=== PATIENT | female | born 1955 | race Caucasian/White ===

== ENCOUNTER 2020-07-21 01:29 | Outpatient (CLI) | payer MEDICAID, SELFPAY ==
--- NOTE | 2020-07-21 | DI.MAMMO_ITS ---
EXAM: MG MAMMO SCREENING CLINICAL HISTORY: SCREENING, Z12.31 TECHNIQUE: Bilateral full field digital CC and MLO mammographic images were obtained with 3D tomosyn thesis and utilizing computer aided detection (CAD). COMPARISON: Available for comparison. FINDINGS: Masses/Architectural Distortion: None seen. Microcalcifications: No suspicious pleomorphic-type are seen. Skin Thickening/Nipple Retraction: None. IMPRESSION: 1. No significant interval change with no specific features of malignancy noted. 2. Unless there is more urgent need, screening mammography is recommended, as per [employer] guidelines. BI-RADS Category 1 - Negative Breast Density - Category B - Scattered areas of fibroglandular density Breast density category C or D implies that the patient has dense breast tissue. Dense breast tissue is very common and is not abnormal but dense breast tissue can make it harder to find cancer on a ma mmogram. Also, dense breast tissue may increase their breast cancer risk. This information about the result of the mammogram report was provided to the patient to raise their awareness. Use this report when you speak with the patient about their risks for breast cancer, which includes their family hist ory. At that time, you may recommend for more screening tests (Ultrasound or MRI) as they might be us eful based on their risk. A negative radiographic report should not delay biopsy if a dominant or clinically suspicious mass is present. Up to ten percent of cancers are not identified on mammography. A negative report may reinforce clinical impression. Adenosis and dense breasts may obscure an underlying neoplasm. False positive reports average 6 to 10%. Patient will receive a letter notifying them of these results.
== END 2020-07-21 01:49 ==
DX: Z12.31 Encounter for screening mammogram for malignant neoplasm of breast (principal)
CPT/HCPCS: 77063; 77067

== ENCOUNTER 2021-06-15 10:35 | Emergency (ER) | payer MEDICAID, SELFPAY ==
[2021-06-15 10:43] VITALS: BP 125/79; PULSE 98; RESP 16; TEMP 36.6; O2SAT 99
--- NOTE | 2021-06-15 10:45 | DI.CT_ITS ---
Exam(s) CT ABDOMEN PELVIS W EXAM: CT ABDOMEN PELVIS W CLINICAL HISTORY: RUQ abd pain. TECHNIQUE: Imaging Protocol: Axial computed tomography images with coronal and sagittal reformatted images were created and reviewed CONTRAST MATERIAL: Intravenous: Omnipaque 100cc Oral: None COMPARISON: No exams were available for comparison FINDINGS: VISUALIZED LUNG BASES: Mild increased markings in the posterior and lateral basal segment of the righ t lower lobe. There is also a 4 millimeter subpleural nodule in the lateral basal segment of right l ower lobe (series 4/image 11). There are no pleural effusions.. ABDOMEN: There is no ascites. LIVER: In the right hepatic lobe there is a well-defined round hypodensity measuring 5 millimeters, d ifficult to accurately characterize on the single flow study. However, has benign appearance. No ot her focal hepatic findings and there is no dilatation of intrahepatic ducts. GALLBLADDER/BILIARY: No obvious gallbladder pathology. CBD is not dilated. PANCREAS: There are few tiny punctate parenchymal calcifications in the uncinate process of the pancr eas. No obvious mass at this level. The pancreatic duct is not dilated. There is no peripancreatic fluid. SPLEEN: Spleen is not enlarged. No obvious intrasplenic lesions. Splenic and portal veins are paten t. ADRENALS: There are no significant adrenal masses. KIDNEYS:No cysts evident. No solid renal masses. No calculi nor hydronephrosis.. ABDOMINAL AORTA: Abdominal aorta is not enlarged. LYMPH NODES:There is no retroperitoneal nor paraaortic adenopathy. ABDOMINAL WALL: No evidence of significant anterior abdominal wall nor inguinal hernia. GI: There is an area of abnormality in the right-side of the colon in the upper ascending-right colon which exhibits mural edema. This just below the gallbladder level. Ileocecal valve appears unremar kable. Appendix appears unremarkable. There is, some streaking in pericolic gutter. PELVIS: GI: No evidence of appendicitis.No evidence of sigmoid diverticulitis. LYMPH NODES: Uterus size age-appropriate. However, there is cysts in both ovaries. There appears to be a solitary cyst in each ovary. On the right side this measures 1.5 by 1.3 cm. On the left side measures 1.6 by 1.1 cm. REPRODUCTIVE: Age-appropriate URINARY BLADDER: No calculi nor obvious masses evident OSSEOUS: No significant osseous lesions. No fractures. Sacroiliac joints appear IMPRESSION: 1. In the upper ascending colon (right-sided) there is focal circumferential mural thickening, either related to focal colitis or possible diverticulitis given that there appears to be a single eccentri c laterally located diverticulum at this level. Is here is somewhat difficult to evaluate without in traluminal oral contrast. Follow-up colonoscopy when clinically feasible is recommended. 2. There are few small punctate calcifications noted in the uncinate process of the pancreas. No act ual mass at this level and there is no dilatation of the pancreatic duct. 3. There is a solitary 5 millimeter round hypodensity in the right hepatic lobe. This does not have the appearance simple cyst. Possibly represents hemangioma. Requires appropriate follow-up to ensur e stability. Report discussed by phone with ER provider RADIATION DOSE DELIVERED: 732.69mGy.cm Total DLP DATA REPOSITORY: All CT scans at this facility are submitted to the National Radiology Data Registry (NRDR) Dose Index Registry (DIR) with the [employer] ([employer]). RADIATION OPTIMIZATION: All CT scans at this facility use at least one of these dose optimization te chniques: automated exposure control; mA and/or kV adjustment per patient size (includes targeted exa ms where dose is matched to clinical indication); or iterative reconstruction.
--- NOTE | 2021-06-15 10:50 | ED.GENADUL_ITS ---
Discharge Plan Disposition Patient Disposition: HOME Condition: Stable Discharge Details Clinical Impression: Gastroenteritis Primary Care Provider: Yarelis Johnson ED Provider: Erinn Luna Home Meds and New Rx's Prescriptions: New amoxicillin-pot clavulanate [Augmentin] 875-125 mg tablet 1 tab PO BID 10 Days Qty: 20 RF: 0 Discharge Instructions Instructions: Diverticulitis (ED), Gastroenteritis (ED), Diverticulitis Diet (ED) Additional Instructions: At this time CT shows a inflamed area of your colon and a possible diverticulitis. Please take the antibiotics twice daily as directed. May take the nausea medication 20 to 30-minute prior to eating or drinking anything. Clear liquids for the next 2 to 3 days. Then advance as tolerated with a bland diet. Away from anything fried, fatty or spicy. No dairy. Please follow a diverticulitis diet and stay away from anything with seeds or nuts. Follow up with primary care provider in 3-5 days. Return to ED sooner if any worsening or concerns. Increase oral fluids. Please take Tylenol or Ibuprofen with food every 4-6 hours as needed for pain and swelling. Referrals: Yarelis Johnson MD [Primary Care Provider] - 1 week Discharge Data Discharge Date/Time-TO BE ENTERED AT DEPARTURE: 06/15/21 13:20 Medical Decision Making 66-year-old female presents to the ER with chief complaint of right upper quadrant abdominal pain which began approximately 2 days ago. Patient reports that initially she did have some nausea and vomited 1 time 2 days ago. Nothing since then. She reports some bright red blood noted on the tissue possibly in her stool. She denies any fever or dysuria. No history of abdominal surgeries. Has been taking Tylenol at home with little to no relief. No significant past medical history. CBC largely unremarkable, CMP also largely unremarkable. Urinalysis shows small blood and small leukocytes culture is pending. Spoke with Dr. Akers radiologist regarding patient's CT result. CT shows a focal colitis or possible diverticulitis in the right ascending colon. Discussed results with patient who verbalizes understanding. Discussed follow- up with PCP within the next week. We'll treat for possible diverticulitis here and give Augmentin twice daily and also send patient home with some Zofran. Discussed strict return instructions and diet with patient. At this time there is no evidence for sepsis. HPI General Mode of arrival: ambulatory . Date/Time Provider Initiated Documentation: 06/15/21 10:36 . Limitations to Documentation: no limitations . Information obtained by: patient and RN notes reviewed . HPI Narrative: 66-year-old female presents to the ER with chief complaint of right upper quadrant abdominal pain which began approximately 2 days ago. Patient reports that initially she did have some nausea and vomited 1 time 2 days ago. Nothing since then. She reports some bright red blood noted on the tissue possibly in her stool. She denies any fever or dysuria. No history of abdominal surgeries. Has been taking Tylenol at home with little to no relief. No significant past medical history. Related Data Home Medications Medication Instructions Recorded Confirmed amoxicillin-pot clavulanate 1 tab PO BID 10 Days #20 tab 06/15/21 [Augmentin] Previous Rx's Medication Instructions Recorded amoxicillin-pot clavulanate 1 tab PO BID 10 Days #20 tab 06/15/21 [Augmentin] Allergies Allergy/AdvReac Type Severity Reaction Status Date / Time No Known Allergies Allergy Unverified 06/15/21 10:48 General Stated Complaint: Abd Prob STEPHANIE: 3 Review of Systems All systems reviewed & are unremarkable except as noted in HPI and below Gastrointestinal Gastrointestinal: Reports abdominal pain, Reports nausea and Reports vomiting PFSH All Active Problems (Updated 06/15/21 @ 13:03 by Erinn Luna) Gastroenteritis (Acute) Social History Smoking/Tobacco Use Status: Never Smoking risk assessment performed?: Yes Substance use type: does not use Do you feel safe in your relationship?: Yes Exam Narrative Exam Narrative: Constitutional: Alert and oriented x3. Appears stated age. Normal body habitus. Head: Normocephalic, no trauma. Eyes: Pupils PERRL, Red reflex noted, EOM's intact. Eyelids symmetrical without lesions, discharge, or swelling. ENT: Bilateral TM's WNL, External ear normal to inspection, no mastoid TTP, swelling, or erythema, Nasal turbinates WNL, no nasal discharge. Normal dentition, Posterior pharynx WNL, no exudate. Chest: RRR, Normal S1, S2, distal pulses intact. Resp: Lungs clear to auscultation bilaterally, no wheezes, rales, or rhonchi. Abdomen: Soft, non-distended, Normoactive bowel sounds all 4 quads. Musculoskeletal: Normal gait, 5/5 strength to all four extremities. Skin: No suspicious rashes or lesions. Capillary refill less than 2 sec. Neurologic: Cranial nerves II-XII intact. Alert and oriented x 3. Motor: No deficits noted. Sensory: Intact bilaterally all 4 extremities. Reflexes: DTR's intact bilaterally.. Hematologic/Lymphatic: No ecchymosis, no lymphadenopathy. Course Vital Signs Vital signs: Vital Signs Temperature 36.6 C 06/15/21 10:43 Pulse 98 H 06/15/21 10:43 Respiratory Rate 16 06/15/21 10:43 Blood Pressure 125/79 06/15/21 10:43 Pulse Oximetry 99 06/15/21 10:43 Temperature 36.6 C 06/15/21 10:43 Temperature Source Skin 06/15/21 10:43 Pulse 98 H 06/15/21 10:43 Respiratory Rate 16 06/15/21 10:43 Respiratory Effort 06/15/21 10:43 Blood Pressure 125/79 06/15/21 10:43 Blood Pressure Position Sitting 06/15/21 10:43 Pulse Oximetry 99 06/15/21 10:43 Oxygen Delivery Method Room Air 06/15/21 10:43 Oxygen Flow Rate 0 06/15/21 10:43 Pain Level 8 06/15/21 10:43
[2021-06-15 11:00] LABS: Bilirubin Negative (Negative); Blood Small (Negative); Clarity Sl Cloudy (Clear); Glucose Negative (Negative); Ketones Negative (Negative); Leukocyte Esterase Small (Negative); Nitrite Negative (Negative); Urobilinogen 0.2 EU/dL (Up TO 0.2)
[2021-06-15 11:09] LABS: Abs Immature Grans 0.01 10^3/uL (0.0-0.06); Absolute Basophil Count 0.02 10^3/uL (0.0-0.2); Absolute Eosinophil Count 0.01 10^3/uL (0.0-0.7); Absolute Lymphocyte Count 0.86 10^3/uL (1.2-3.4); Absolute Monocyte Count 0.46 10^3/uL (0.1-0.8); Absolute Neutrophil Count 6.35 10^3/uL (1.2-6.7); Basophils % 0.3; Eosinophils % 0.1; HCT 37.7 % (36.0-46.0); HGB 12.2 g/dL (11.2-15.7); Immature Grans % 0.1; Lymphocytes % 11.2; MCH 31.4 pg (27.0-33.0); MCHC 32.4 % (32.0-36.0); MCV 96.9 fL (80-95); MPV 9.8 fL (8.0-11.0); Neutrophils % 82.3; Nucleated RBC 0 %; Platelet Count 184 10^3/uL (130-400); RBC 3.89 10^6/uL (3.93-5.22); WBC 7.71 10^3/uL (4.4-10.8)
[2021-06-15 11:15] LABS: Bacteria Negative HPF (Negative); C & S Indicated? Yes; Casts Negative LPF (Negative); Crystals Negative HPF (Negative); Epithelial Cells Rare HPF (Negative); Mucus Negative (Negative); RBC 0-2 HPF (0-2); WBC 0-2 HPF (0-5)
[2021-06-15 11:32] LABS: ALT 23 U/L (14-59); AST 22 U/L (15-37); Alkaline Phosphatase 62 U/L (46-116); Anion Gap 10.6 mmol/L (3-11); BUN 11 mg/dL (7-18); Bilirubin, Total 0.8 mg/dL (0.2-1.0); CO2 26.4 mmol/L (21.0-32.0); CREATININE 0.8 mg/dL (0.55-1.02); Calcium 9.1 mg/dL (8.5-10.1); Chloride 100 mmol/L (98-107); Glucose 118 mg/dL (74-106); Lipase 121 U/L (73-393); Potassium 3.6 mmol/L (3.5-5.1); Sodium 137 mmol/L (136-145); Total Protein 8.3 g/dL (6.4-8.2)
--- NOTE | 2021-06-15 11:50 | NUR.NOTE ---
Nursing Note: Pt at CT
[2021-06-15] MEDS: Omnipaque 350 MG/ML 100 ML BTL IV (12:01)
[2021-06-15 12:08] VITALS: BP 127/56; PULSE 92; RESP 20; O2SAT 99
[2021-06-15] MEDS: Ondansetron O.D.T. 4 MG TABEF, 3 TABS/BTL PO (13:12)
[2021-06-15] MEDS: Acetaminophen 500 MG TAB 1000 MG PO (13:12)
[2021-06-15] MEDS: Amoxicillin 875/Clav. 125 TAB PO (13:12)
[2021-06-15 13:17] VITALS: BP 128/75; PULSE 84; RESP 20; TEMP 36.6; O2SAT 96
== END 2021-06-15 13:20 | disposition home or self-care (01) ==
PROVIDERS: Emergency Provider Registered Nurse Emergency
DX: K52.9 Noninfective gastroenteritis and colitis, unspecified (principal); R10.11 Right upper quadrant pain
CPT/HCPCS: 36415; 80053; 83690; 99285; 74177; 81003; 81015; 83735; 85025; 87086; 99283; J3490

== ENCOUNTER 2021-07-22 01:52 | Outpatient (CLI) | payer MEDICAID, SELFPAY ==
[2021-07-22 12:25] LABS: Source Nasal/Nares
[2021-07-22 17:20] LABS: COVID-19 PCR Negative (Negative)
== END 2021-07-22 01:53 | disposition home or self-care (01) ==
LOC: LBO 01:52
PROVIDERS: PCP Nurse Practitioner Family; Visit Provider Surgery
DX: Z20.822 Contact with and (suspected) exposure to COVID-19 (principal)
CPT/HCPCS: 87635

== ENCOUNTER 2021-07-25 08:20 | Day surgery (SDC) | payer MEDICAID, SELFPAY ==
--- NOTE | 2021-07-24 19:11 | W.ANESPRE ---
General Info Date of Service Date Performed: 07/25/21 Height: 5 ft 7 in Weight: 65.317 kg Body Mass Index (BMI): 22.5 Surgical Procedure: Operation Date: 07/25/21 09:50 Proposed Procedure Side Surgeon sharonda Warren MD Meds Allergies and Home Medications Allergies Allergy/AdvReac Type Severity Reaction Status Date / Time No Known Allergies Allergy Unverified 07/25/21 08:40 Home Medication Medication Instructions Recorded bisacodyl 5 mg tablet,delayed 5 mg PO ONCE #4 tab 07/12/21 release (Dulcolax (bisacodyl)) polyethylene glycol 3350 17 17 g PO ONCE #238 g 07/12/21 gram/dose oral powder Current Visit Medications: Current Medications Generic Name Dose Route Start Last Admin Trade Name Freq PRN Reason Stop Dose Admin Ringer's Solution 1,000 mls @ 80 mls/hr 07/25/21 06:00 IV 08/18/21 23:59 INFUSION JENNIFER IV Miscellaneous Supplies 1 each 07/25/21 06:00 Iv Access IV 08/18/21 23:59 DIRECTED JENNIFER Sodium Chloride 0 ml 07/25/21 06:00 Normal Saline Flush 10 Ml Syr IV 08/18/21 23:59 PRN PRN Sodium Chloride 0 ml 07/25/21 06:00 Normal Saline 10 Ml Vial IJ 08/18/21 23:59 DIRECTED PRN Sterile Water 0 ml 07/25/21 06:00 Water,Injection,Sterile 10 Ml Vial IJ 08/18/21 23:59 DIRECTED PRN PFSH Active Problems Active Problems: Problem Status Onset Code Abnormal CT of the abdomen R93.5 Medical History Medical History Depression Surgical History Surgical History Hx of hand surgery Hx of tonsillectomy Hx of wisdom tooth extraction Tobacco Smoking/Tobacco Use Status: Former Tobacco Use Alcohol Alcohol Intake: current Alcohol intake frequency: a few times a week Alcohol type: wine Substance Use Substance use: Never Substance use type: does not use Vital Signs and Lab Results Vital Signs Most Recent Vital Signs in EMR: Temp Pulse Resp BP Pulse Ox 36.5 C 108 H 18 124/69 100 07/25/21 08:34 07/25/21 08:34 07/25/21 08:34 07/25/21 08:34 07/25/21 08:34 Lab Results Blood Type / Crossmatch: No Data to Display Complete Blood Count: No Data to Display Complete Metabolic Panel: No Data to Display Liver Function Panel: No Data to Display Coagulation Panel: No Data to Display Cardiac Panel: No Data to Display Arterial Blood Gas: No Data to Display Venous Blood Gas: No Data to Display Pancreas Panel: No Data to Display Thyroid Panel: No Data to Display Infectious Disease: Coronavirus (COVID-19)(PCR) Negative (Negative) 07/22/21 08:41 07/22/21 Coronavirus 2019 Source Nasal/Nares 07/22/21 08:41 07/22/21 Blood Cultures: No Data to Display Toxicology Panel: No Data to Display Anesthesia Assessment and Plan Anesthesia History Personal History: No History of Anesthesia Complications Family History: No Family History of Anesthesia Complications Exercise Tolerance Exercise Tolerance: Metabolic Equivalents>4 Cardiac & Pulmonary Exam Cardiac Exam: Normal S1/S2 Heart Sounds Pulmonary Exam: Clear Bilateral Breath Sounds Implantable Cardiac Device Does patient have a Pacemaker or an ICD?: No Airway Exam Known Difficult Airway: No Mallampati Class: 2 Mouth Opening: Narrow (< 3cm) Thyromental Distance: Greater than 3 cm Neck Range of Motion: Full ROM Neck Circumference: Normal Teeth Condition: Normal Dentition ASA Classification ASA Score: ASA 2 Emergency Case?: No NPO Status NPO Status: NPO Clears >2 hours, Solids >8 hours Anesthesia Plan Resuscitation Status: Full Code Anesthesia Technique: General Anesthesia Airway Planned: Natural Airway Monitors Used: Standard Monitors Preoperative Comments:: 66 yo female for colo. Sig PMHx: denies. Former smoker. Previous Anes: igel 3. Seems very anxious.
--- NOTE | 2021-07-25 07:02 | W.COLOREPORT ---
Colonoscopy Report Date of procedure: 07/25/21 Pre-op diagnosis general: Abnormal CT scan Post-op diagnosis procedure note: other (mild right sided diverticulosis) Procedure: Colonoscopy Surgeon: Leticia Warren Anesthesia Type: General:No Airway Estimated blood loss (mL): 0 Pathology: none sent Complications: None Disposition: same day Indications: Ms. Aguirre is a pleasant 66-year-old female who had an episode of diarrhea with bright red blood as well as vomiting.? She was seen in the emergency department and a CT scan of her abdomen and pelvis was done.? CT scan was reviewed today in the office.? It shows some thickening and inflammation in the distal ascending colon.? Differential includes viral/bacterial colitis, diverticulitis or a mass.? The procedure was explained to the patient in detail using a pamphlet with pictures.? We reviewed the risks benefits and complications of the procedure. Risks, benefits and complications have been reviewed. Complications include but are not limited to bleeding, pain, perforation, missed small lesion/polyp, sore throat, aspiration and adverse reaction to the medications. Questions were entertained and answered to their satisfaction and they wished to proceed. No guarantees were given or implied. Prep: Miralax/Dulcolax Procedure Start Time: 10:06 Procedure End Time: : Retraction Time: 10 minutes Findings: mild right sided diverticulosis Procedure Description: After informed consent was obtained the patient was taken to the procedure room and placed in a left decubitous position. Monitors were applied and a time out was done. The patients name, date of , procedure, allergies to medications and metal in their body was reviewed. The patient was then sedated. Once sedated and comfortable a rectal exam was done. External exam was normal. Internal exam revealed a normal sphincter tone and no palpable masses. The scope was then introduced and retro-flexed. No internal hemorrhoids, polyps or masses were identified on retro-flexion. The scope was then advanced to the cecum without difficulty. The ileocecal vlave and appendiceal orifice were identified. The prep was good. The scope was then slowly retracted over 10 minutes back into the rectum. There were no polyps identified. There was mild right sided diverticulosis noted. The scope was removed and the patient was woken up and taken back to Same day surgery in stable condition. The patient tolerated the procedure well and there were no immediate complications. Follow up: The patient should follow up in 10 years unless they develop changes in bowel habits or other new gastrointestinal complaints.
--- NOTE | 2021-07-25 07:03 | W.PM.DSUDISC ---
Discharge Plan Disposition Patient Disposition: HOME Condition: Good Discharge Details Reason For Visit: Colonoscopy Attending Provider: Leticia Warren Primary Care Provider: Adela Dixon Home Meds and New Rx's Prescriptions: Discontinued bisacodyl [Dulcolax (bisacodyl)] 5 mg tablet,delayed release (DR/EC) 5 mg PO ONCE Qty: 4 0RF Rx Instructions: Take according to provider's instructions for colonoscopy prep. polyethylene glycol 3350 17 gram/dose powder 17 g PO ONCE Qty: 238 0RF Rx Instructions: To be taken as directed by prescriber's office for colonoscopy prep. Discharge Instructions Instructions: Diverticulosis (DC) Additional Instructions: Findings: mild right sided diverticulosis Follow up: 10 years Please call if you develop: fevers >101.5 Nausea or Vomiting Abdominal pain that is not transient Rectal bleeding that is more then a tbsp A hard abdomen and inability to pass gas DAY SURGERY UNIT POST ENDOSCOPY INSTRUCTIONS Instructions for everyone who is given Anesthesia: For your safety, please do the following for the next 24 Hours: a. Do not drive or operate dangerous equipment b. Do not drink alcohol beverages or use any recreational drugs for the first 24 hours or while taking pain medications. The medications in your body may have a reaction that can be dangerous. c. Do not make any important decisions or sign any important papers 1. Generally there are no restrictions on your activity after a day or so has gone by, but you may feel a bit fatigued for a few days. 2. After you arrive home you may have a light meal and return to a normal diet as you can tolerate it without feeling sick to your stomach. 3. After surgery, you may feel pain or discomfort. This should be only transient, but if it persists please contact your doctor. 4. If there are any questions regarding the findings of your procedure, please feel free to contact your doctor. 6. If you are unable to contact your doctor with a problem, contact the hospital at [phone]. 7. Continue all your regular medications unless directed otherwise. I understand the above instructions and have no questions. Signature of Patient or Responsible Adult Escort Date/Time Name of Responsible Adult Escort Signature of Nurse Date/Time Activity:: Activity as Tolerated Diet:: high fiber diet Discharge Orders Discharge Orders: Discharge Order (Routine); Ordered 07/25/21 Ordered By: Leticia Warren
[2021-07-25 08:34] VITALS: BP 124/69; PULSE 108; RESP 18; TEMP 36.5; O2SAT 100
[2021-07-25] MEDS: Lactated Ringers 1,000 ML 80 ML IV (08:53)
[2021-07-25 09:49] VITALS: BMI 22.5
[2021-07-25 10:32] VITALS: BP 116/61; PULSE 77; RESP 16; TEMP 36.3; O2SAT 98
[2021-07-25 11:05] VITALS: BP 101/78; PULSE 71; RESP 16; TEMP 36.7; O2SAT 99
--- NOTE | 2021-07-25 11:07 | W.ANESPOSTOP ---
Postoperative Evaluation Date, Time and Location Date Performed: 07/25/21 Time Performed: 10:40 Patient Location: Day Surgery Unit Vital Signs Most Recent Imported Vital Signs: Most Recent Vital Signs Temp Pulse Resp BP Pulse Ox 36.3 C L 77 16 116/61 98 07/25/21 10:32 07/25/21 10:32 07/25/21 10:32 07/25/21 10:32 07/25/21 10:32 Pain Score Most Recent Pain Score: Most Recent Pain Score Pain Level 0 07/25/21 10:32 Assessment Mental Status: Awake (Alert & Oriented to Patient Baseline) Airway and Respiratory Function: Patent airway with normal (patient baseline) respiratory exam Cardiovascular Function: Hemodynamically Stable Hydration Status: Adequately Hydrated Nausea & Vomiting: No Nausea or Vomiting Pain: Pt. Denies Any Pain Peripheral Nerve Block: Patient did not receive a nerve block
== END 2021-07-25 11:25 | disposition home or self-care (01) ==
LOC: SUR 08:21
PROVIDERS: PCP Nurse Practitioner Family; Visit Provider Surgery
PROC: 0DJD8ZZ Inspection of Lower Intestinal Tract, Via Natural or Artificial Opening Endoscopic (ICD-10-PCS; CPT 45378; principal; 2021-07-25 09:45)
DX: R93.3 Abnormal findings on diagnostic imaging of other parts of digestive tract (principal); K92.1 Melena; R19.7 Diarrhea, unspecified; K57.30 Diverticulosis of large intestine without perforation or abscess without bleeding
CPT/HCPCS: 45378; J2001

== ENCOUNTER 2021-07-28 15:40 | Outpatient (REF) | payer MEDICAID, SELFPAY ==
--- NOTE | 2021-07-28 14:45 | PAPFT_PTH ---
PATIENT: Kareen Aguirre LOC: [facility]#:[id number] AGE/SX: 66/F ROOM: RE07/28/[address]: Adela Dixon : 1955 BED: DIS: 07/28/2021 SPEC #: [id number] RECD: 07/29/21 13:10 STATUS: HUONG RESheela #: [id number] BAIRON: 07/28/21 14:[address]: Adela Dixon DEPT: [facility] Cytology RECD BY: Monae Roldan Tissues: 1 - CX/ENDOCX FOR PAP SMEARS Procedures: PAP THIN PREP/UVM Screening HPV DNA PROBE Comments: [id number] (CHLAMYDIA/GC)
[2021-08-02 07:21] LABS: Chlamydia Result Negative (Negative); GC Result Negative (Negative)
== END 2021-07-28 15:41 | disposition home or self-care (01) ==
LOC: NCHCN 15:40
PROVIDERS: PCP Nurse Practitioner Family; Visit Provider Nurse Practitioner Family
DX: Z12.4 Encounter for screening for malignant neoplasm of cervix (principal); Z11.51 Encounter for screening for human papillomavirus (HPV); Z11.3 Encounter for screening for infections with a predominantly sexual mode of transmission
CPT/HCPCS: 87491; 87591; 88142; 87624

== ENCOUNTER 2021-08-25 23:20 | Outpatient (REF) | payer MEDICAID, SELFPAY | END 2021-08-25 23:21 | disposition home or self-care (01) | LOC: NCHCN 23:20 | PROVIDERS: PCP Nurse Practitioner Family; Visit Provider Nurse Practitioner Family | DX: R31.9 Hematuria, unspecified (principal) | CPT/HCPCS: 87077; 87086; 87186 ==

== ENCOUNTER → 2021-12-12 02:22 | Outpatient (CLI) | payer MEDICAID, SELFPAY ==
--- NOTE | 2021-12-12 | DI.CT_ITS ---
Exam(s) CT ABDOMEN W EXAM: CT ABDOMEN W CLINICAL HISTORY: ABNL PRIOR IMAGING R93.5, LIVER ABNORMALITY TECHNIQUE: COMPARISON: CT CT ABDOMEN PELVIS W from 06/15/2021 FINDINGS: Visualized lung bases: Small pleural based 4 millimeter nodule in the lateral basal segment of the ri ght lower lobe is unchanged. No pleural effusions. There is no ascites. LIVER: Previously described small benign-appearing 5 millimeter hypodensity in the right hepatic lobe is again noted. It remains a solitary hepatic finding. On the delayed post-contrast sequence it be comes isodense to surrounding parenchyma and is therefore most probably benign hemangioma. No other significant focal hepatic findings. BILIARY: There is no obvious gallbladder pathology. CBD is not dilated. PANCREAS: A few parenchymal calcifications are again noted in the uncinate process of the pancreas, u nchanged. No mass at this level nor elsewhere in the gland. Another calcification measuring 2-3 mil limeters is noted in the body. No pancreatic mass. Pancreatic duct is not dilated. SPLEEN: Unremarkable. Normal size. No lesions. Splenic and portal veins are patent. ADRENALS: Right adrenal gland unremarkable. Slight thickening of the genu left adrenal gland is unch anged. KIDNEYS: No focal findings. No calculi. No hydronephrosis. ABDOMINAL AORTA: Not enlarged. No tklsokgyvrwphog-bcah-wwdify adenopathy. No adenopathy around the aortic bifurcation. Visualized common iliac arteries exhibit normal diameters. ANTERIOR ABDOMINAL WALL: No significant hernia at and above the level of the umbilicus. Osseous: No fractures nor osseous lesions in the visualized vertebral bodies.. GI: No bowel obstruction. The previously described ascending-right colon is not able to be restudy o n this study because this study was of the abdomen only and the pelvis was not scanned. IMPRESSION: 1. Stable 5 millimeter benign-appearing hypodensity in the right hepatic lobe. This exhibits charact eristics of a benign hemangioma on today's multiphase study. It becomes essentially isodense to the surrounding liver parenchyma on the 5 minutes post injection sequence. There are no new additional f ocal liver findings. 2. Pancreatic parenchymal calcifications again noted, again most prominent in the uncinate process. However, there is no ominous pancreatic mass evident and no dilatation of the pancreatic duct.
[2021-12-12 12:49] LABS: CREATININE 0.8 mg/dL (0.55-1.02)
[2021-12-12] MEDS: Omnipaque 350 MG/ML 100 ML BTL IV (13:18)
== END ==
PROVIDERS: PCP Nurse Practitioner Family; Visit Provider Nurse Practitioner Family
DX: R93.5 Abnormal findings on diagnostic imaging of other abdominal regions, including retroperitoneum (principal)
CPT/HCPCS: 74160; 82565; J3490

== ENCOUNTER 2023-02-07 20:32 | Outpatient (REF) | payer MEDICARE, SELFPAY ==
[2023-02-07 18:01] LABS: Bilirubin Negative (Negative); Blood Trace-lysed (Negative); Clarity Clear (Clear); Glucose Negative (Negative); Ketones Negative (Negative); Leukocyte Esterase Negative (Negative); Nitrite Negative (Negative); Urobilinogen 0.2 mg/dL (Up to 0.2)
[2023-02-07 18:53] LABS: Bacteria Negative HPF (Negative); C & S Indicated? No; Crystals Negative HPF (Negative); Epithelial Cells Rare HPF (Negative); Mucus Negative (Negative); RBC 0-2 HPF (0-2); WBC Negative HPF (0-5)
[2023-02-07 21:07] LABS: HCT 38.3 % (36.0-46.0); HGB 12.6 g/dL (11.2-15.7); MCH 31.7 pg (27.0-33.0); MCHC 32.9 % (32.0-36.0); MCV 97 fL (80-95); MPV 10.8 fL (8.0-11.0); Platelet Count 216 10^3/uL (130-400); RBC 3.97 10^6/uL (3.93-5.22); RDW 12.3 % (11.7-14.6); RDW-SD 43.6 fL; WBC 5.68 10^3/uL (4.4-10.8)
[2023-02-07 21:21] LABS: ALT 25 U/L (14-59); AST 20 U/L (15-37); Albumin 4.3 g/dL (3.4-5.0); Alkaline Phosphatase 62 U/L (46-116); Anion Gap 9.2 mmol/L (3-11); BUN 13 mg/dL (7-18); Bilirubin, Total 0.4 mg/dL (0.2-1.0); CO2 27.8 mmol/L (21.0-32.0); CREATININE 0.7 mg/dL (0.55-1.02); Calcium 9.6 mg/dL (8.5-10.1); Calculated LDL 165 mg/dL (<100); Chloride 98 mmol/L (98-107); Cholesterol 285 mg/dL (<200); Estimated GFR 95.32 (mL/min/1.73m2); Glucose 95 mg/dL (74-106); HDL Cholesterol 105 mg/dL (40-60); Potassium 3.7 mmol/L (3.5-5.1); Sodium 135 mmol/L (136-145); Total Protein 7.9 g/dL (6.4-8.2); Triglyceride 78 mg/dL (<150)
== END 2023-02-07 20:33 | disposition home or self-care (01) ==
LOC: NCHCN 20:32
PROVIDERS: PCP Nurse Practitioner Family; Visit Provider Nurse Practitioner Family
DX: R31.9 Hematuria, unspecified (principal); R79.89 Other specified abnormal findings of blood chemistry
CPT/HCPCS: 80053; 80061; 85027; 81003; 81015

== ENCOUNTER → 2023-02-26 13:31 | Outpatient (BNVA) | payer MEDICARE, SELFPAY | PROVIDERS: PCP Nurse Practitioner Family; Referring Provider Nurse Practitioner Family; Visit Provider Surgery | DX: L72.3 Sebaceous cyst (principal) | CPT/HCPCS: 99213 ==

== ENCOUNTER → 2023-03-13 08:03 | Outpatient (BNVA) | payer MEDICARE, SELFPAY | PROVIDERS: PCP Nurse Practitioner Family; Referring Provider Nurse Practitioner Family; Visit Provider Surgery | DX: L72.3 Sebaceous cyst (principal) | CPT/HCPCS: 11401; 12001 ==

== ENCOUNTER → 2023-03-27 14:27 | Outpatient (BNVA) | payer MEDICARE, SELFPAY | PROVIDERS: PCP Nurse Practitioner Family; Referring Provider Nurse Practitioner Family; Visit Provider Surgery | DX: Z48.817 Encounter for surgical aftercare following surgery on the skin and subcutaneous tissue (principal) | CPT/HCPCS: 99212 ==

== ENCOUNTER 2023-10-08 14:13 | Outpatient (REF) | payer MEDICARE, SELFPAY | END 2023-10-08 14:14 | disposition home or self-care (01) | LOC: NCHCN 14:13 | PROVIDERS: PCP Nurse Practitioner Family; Visit Provider Nurse Practitioner Family | DX: R31.9 Hematuria, unspecified (principal); B96.89 Other specified bacterial agents as the cause of diseases classified elsewhere | CPT/HCPCS: 87077; 87086; 87186 ==

== ENCOUNTER 2024-01-08 02:05 | Outpatient (CLI) | payer MEDICARE, SELFPAY ==
[2024-01-08 23:21] LABS: HBs Antibody, Quant <3.1 mIU/mL (See Note); Hepatitis B Surface Ab Negative (See Note)
[2024-01-09 09:18] LABS: Varicella IgG Antibody Positive (See Note)
[2024-01-09 09:28] LABS: Measles IgG Antibody Positive (See Note); Mumps Antibody IgG Negative (See Note); Rubella IgG Ab (UVM) Positive (See Note)
[2024-01-10 12:59] LABS: TB Interpretation Negative (Negative)
== END 2024-01-08 02:06 | disposition home or self-care (01) ==
LOC: LBO 02:05
PROVIDERS: PCP Nurse Practitioner Family; Visit Provider Nurse Practitioner Family
DX: Z02.1 Encounter for pre-employment examination (principal)
CPT/HCPCS: 36415; 86706; 86787; 86480; 86735; 86762; 86765

== ENCOUNTER 2024-03-04 12:53 | Outpatient (REF) | payer MEDICARE, SELFPAY ==
[2024-03-04 14:30] LABS: Absolute Basophil Count 0.02 10^3/uL (0.0-0.2); Absolute Eosinophil Count 0.05 10^3/uL (0.0-0.7); Absolute Lymphocyte Count 0.86 10^3/uL (1.2-3.4); Absolute Monocyte Count 0.31 10^3/uL (0.1-0.8); Absolute Neutrophil Count 2.09 10^3/uL (1.2-6.7); Basophils % 0.6 %; Eosinophils % 1.5 %; HCT 40.5 % (36.0-46.0); HGB 13.2 g/dL (11.2-15.7); Lymphocytes % 25.8 %; MCH 32.2 pg (27.0-33.0); MCHC 32.6 % (32.0-36.0); MCV 99 fL (80-95); Monocytes % 9.3 %; Neutrophils % 62.8 %; Platelet Count 187 10^3/uL (130-400); RDW 12.3 % (11.7-14.6); RDW-SD 44.5 fL; WBC 3.33 10^3/uL (4.4-10.8)
[2024-03-04 15:01] LABS: ALT 29 U/L (14-59); AST 21 U/L (15-37); Albumin 4.3 g/dL (3.4-5.0); Alkaline Phosphatase 70 U/L (46-116); Anion Gap 10.9 mmol/L (3-11); BUN 13 mg/dL (7-18); Bilirubin, Total 0.52 mg/dL (0.2-1.0); CO2 28.1 mmol/L (21.0-32.0); CREATININE 0.7 mg/dL (0.55-1.02); Calcium 9.4 mg/dL (8.5-10.1); Calculated LDL 148 mg/dL (<100); Chloride 105 mmol/L (98-107); Cholesterol 273 mg/dL (<200); Estimated GFR 94.73 (mL/min/1.73m2); Glucose 108 mg/dL (74-106); HDL Cholesterol 103 mg/dL (40-60); Potassium 4.5 mmol/L (3.5-5.1); Sodium 144 mmol/L (136-145); TSH (W/Ref FT4) 1.24 uIU/mL (0.36-3.74); Total Protein 8.1 g/dL (6.4-8.2); Triglyceride 112 mg/dL (<150)
== END 2024-03-04 12:54 | disposition home or self-care (01) ==
LOC: NCHCN 12:53
PROVIDERS: PCP Nurse Practitioner Family; Visit Provider Nurse Practitioner Family
DX: Z13.220 Encounter for screening for lipoid disorders (principal); R41.89 Other symptoms and signs involving cognitive functions and awareness
CPT/HCPCS: 80053; 80061; 84443; 85025

== ENCOUNTER 2024-03-10 01:50 | Outpatient (CLI) | payer MEDICARE, SELFPAY ==
--- NOTE | 2024-03-10 | DI.MAMMO_ITS ---
Exam(s) MAMMO SCREENING EXAM: MAMMO SCREENING CLINICAL HISTORY: Screening, Z12.31. TECHNIQUE: Bilateral full field digital CC and MLO mammographic images were obtained with 3D tomosyn thesis and utilizing computer aided detection (CAD). COMPARISON: Prior mammograms were reviewed. FINDINGS: There has been no significant change in the appearance and distribution of the fibroglandular tissue. There are no new spiculated masses nor malignant appearing microcalcification groups. There is no significant architectural distortion nor skin thickening-retraction. IMPRESSION: No radiographic evidence of malignancy. BI-RADS Category 1 - Negative Breast Density - Category C - Heterogeneously dense Breast density Category C or D implies that the patient has dense breast tissue. Dense breast tissue can make it harder to find cancer on a mammogram. Dense breast tissue is also associated with an incr eased risk of breast cancer. This information about the result of the mammogram report was provided to the patient to raise their awareness. Use this report when you speak with the patient about their risks for breast cancer, which includes their family history. At that time, you may recommend additional screening tests (Ultrasoun d or MRI) as these tests may add significant information. A negative radiographic report should not delay biopsy if a dominant or clinically suspicious mass is present. Up to ten percent of cancers are not identified on mammography. A negative report may reinforce clinical impression. Adenosis and dense breasts may obscure an underlying neoplasm. False positive reports average 6 to 10%. Patient will receive a letter notifying them of these results.
--- NOTE | 2024-03-10 | DI.DEXA_ITS ---
Exam(s) XR DEXA BONE DENSITY W/WO WILBER EXAM: XR DEXA BONE DENSITY W/WO WILBER CLINICAL HISTORY: Asymptomatic menopausal state, Z78.0 TECHNIQUE: Routine DEXA evaluation of the lumbar spine, hip, or forearm. COMPARISON: No exams were available for comparison FINDINGS: Performed on a Hologic unit. Lateral image: No compression fracture evident. Lumbar Spine total T-score: -1.2 Hip total T-score:-1.0 Independent reading at the level of the femoral neck yields T-score of -1.8 Forearm total T-score: -1.2 IMPRESSION: Bone mineral density measures in the osteopenia range. Fracture risk is moderate. Note: Any spine fracture indicates 5x risk for subsequent spine fracture and 2x risk for subsequent h ip fracture. World Health Organization criteria for BMD interpretation classify patients: Normal...... T- Score at or above -1.0 Osteopenic... T- Score between -1.0 and -2.5 Osteoporosis... T-Score at or below -2.5
== END 2024-03-10 02:10 ==
LOC: DI 01:50
PROVIDERS: PCP Nurse Practitioner Family; Visit Provider Nurse Practitioner Family
DX: Z78.0 Asymptomatic menopausal state (principal); Z12.31 Encounter for screening mammogram for malignant neoplasm of breast; Z13.820 Encounter for screening for osteoporosis
CPT/HCPCS: 77063; 77067; 77080